=== PATIENT | female | born 1965 | race Caucasian/White ===

== ENCOUNTER 2017-12-27 17:23 | Emergency (ER) | payer MEDICAID ==
[~2017-12-27] VITALS: Ht 157.5 cm; Wt 70.5 kg
[2017-12-27] MEDS ORDERED: [UNRECOGNIZED DRUG - REMARK] PO (17:26)
[2017-12-27 20:25] VITALS: BP 145/83
== END 2017-12-27 20:32 | disposition home or self-care (01) ==
LOC: EMS 17:25
DX: T78.40XA Allergy, unspecified, initial encounter (principal); F41.9 Anxiety disorder, unspecified; R20.0 Anesthesia of skin; M79.601 Pain in right arm; M79.602 Pain in left arm; Z88.8 Allergy status to other drugs, medicaments and biological substances
CPT/HCPCS: 99283